=== PATIENT | female | born 1990 | race Hispanic/Latino ===

== ENCOUNTER 2017-04-05 16:58 | Emergency (ER) | payer MEDICAID ==
[2017-04-05 17:05] VITALS: RESP 20
--- NOTE | 2017-04-05 17:39 | C.PDOC ---
History Of Present Illness 27 yr old female presents to the ER with complaints of heavy vaginal bleeding for the past several days. Patient reports history of irregular periods for many years. LMP was in December. Patient is pending [facility] [facility] appointment in 2 weeks. Patient denies fever, chills, chest pain, SOB, nausea, vomiting, abdominal pain, dysuria, weakness or numbness. Time Seen by Provider: 04/05/17 17:10 Chief Complaint (Nursing): Female Genitourinary History Per: Patient History/Exam Limitations: no limitations Onset/Duration Of Symptoms: Days (Several) Current Symptoms Are (Timing): Still Present Past Medical History Reviewed: Historical Data, Nursing Documentation, Vital Signs Vital Signs: Last Vital Signs Temp 98.2 F 04/05/17 17:03 Pulse 97 H 04/05/17 17:03 Resp 20 04/05/17 17:03 BP 124/81 04/05/17 17:03 Pulse Ox 98 04/05/17 17:43 Family History: States: No Known Family Hx - Social History Hx Alcohol Use: No Hx Substance Use: No - Immunization History Hx Tetanus Toxoid Vaccination: No Hx Influenza Vaccination: No Hx Pneumococcal Vaccination: No Review Of Systems Except As Marked, All Systems Reviewed And Found Negative. Constitutional: Negative for: Fever, Chills Cardiovascular: Negative for: Chest Pain Respiratory: Negative for: Shortness of Breath Gastrointestinal: Negative for: Nausea, Vomiting, Abdominal Pain Genitourinary: Positive for: Vaginal Bleeding (Heavy vaginal bleeding). Negative for: Dysuria Neurological: Negative for: Weakness, Numbness Physical Exam - Physical Exam Appears: Non-toxic, No Acute Distress Skin: Warm, Dry, No Rash Head: Atraumatic, Normacephalic Eye(s): bilateral: Normal Inspection, PERRL, EOMI, Other (No conjunctival pallor ) Oral Mucosa: Moist Lips: Normal Appearing Respiratory: Normal Breath Sounds, No Rales, No Rhonchi, No Stridor, No Wheezing Gastrointestinal/Abdominal: Normal Exam, Soft, No Tenderness, No Guarding, No Rebound Extremity: Normal ROM, No Swelling ED Course And Treatment - Laboratory Results Result Diagrams: 04/05/17 17:58 Lab Interpretation: Normal Urine POC: Negative O2 Sat by Pulse Oximetry: 98 (RA) Pulse Ox Interpretation: Normal Reevaluation Time: 18:48 Reassessment Condition: Unchanged (PT ADVISED NEED FOR OBGYN EVAL. VSS. APPEARS COMFORTABLE) Medical Decision Making Medical Decision Making: PLAN: * CBC * POC Disposition Counseled Patient/Family Regarding: Studies Performed, Diagnosis, Need For Followup - Disposition Referrals: YOUR,OBGYN [Other] Disposition: HOME/ ROUTINE Disposition Time: 18:48 Condition: GOOD Instructions: Menorrhagia (ED), Dysfunctional Uterine Bleeding (ED) Forms: [facility] (Malagasy) - Clinical Impression Clinical Impression: DUB (dysfunctional uterine bleeding) - Scribe Statement The provider has reviewed the documentation as recorded by the Obdulioibpenelope Thomas Provider Attestation: All medical record entries made by the Obdulioibpenelope were at my direction and personally dictated by me. I have reviewed the chart and agree that the record accurately reflects my personal performance of the history, physical exam, medical decision making, and the department course for this patient. I have also personally directed, reviewed, and agree with the discharge instructions and disposition.
[2017-04-05 18:01] LABS: HEMATOCRIT 45.1 % (34.0-47.0); MEAN CELL VOLUME 94.1 fL (81.0-99.0); MEAN CORPUSCULAR HEMOGLOBIN 32.3 pg (27.0-31.0); MEAN CORPUSCULAR HGB CONC 34.3 g/dL (33.0-37.0); MEAN PLATELET VOLUME 9.2 fL (7.2-11.7); RED CELL DISTRIBUTION WIDTH 13.3 % (11.5-14.5); WHITE BLOOD COUNT 10.2 K/uL (4.8-10.8)
[2017-04-05 18:51] VITALS: BP 112/76; PULSE 78; TEMP 97.7; O2SAT 99
== END 2017-04-05 18:55 | disposition home or self-care (01) ==
LOC: C.ER 16:58
DX: N93.8 Other specified abnormal uterine and vaginal bleeding (principal)